=== PATIENT | male | born 1975 ===

== ENCOUNTER 2025-07-28 06:25 | Day surgery (SDC) | payer OTHER, SELFPAY | END 2025-07-28 09:15 | disposition home or self-care (01) | LOC: GI 06:25 | PROVIDERS: ATTENDING PHYSICIAN Surgery | DX: Z12.11 Encounter for screening for malignant neoplasm of colon (principal); K62.5 Hemorrhage of anus and rectum; K64.8 Other hemorrhoids; D12.0 Benign neoplasm of cecum | CPT/HCPCS: 45380; 88305 ==

== ENCOUNTER 2025-08-15 08:58 | Emergency (ER) | payer OTHER, SELFPAY ==
[2025-08-15 09:12] VITALS: BP 149/77
[2025-08-15 12:30] VITALS: BP 122/72
[2025-08-15] MEDS: ANTIVERT 25 MG PO (13:01)
--- NOTE | 2025-08-15 13:39 | ED.GENMED ---
History of Present Illness
General
Chief Complaint: Dizziness
Time Seen by Provider: 08/15/25 11:23
History of Present Illness
History of Present Illness:
50-year-old male without significant past medical history presenting for dizziness. Patient reports dizziness for the past 2 to 3 days. Reports that the dizziness is very positional, worse with certain head movements. He feels better when he
sitting down. Last night he slept sitting up. Reports a few weeks ago he did have some cough congestion, is unsure if this triggered his symptoms. Does report that he has had dizziness in the past, described as spinning, however usually does not
last very long. The dizziness currently is described as spinning. Denies chest pain, difficulty breathing, weakness, numbness or tingling to his extremities, visual changes. Denies any fall or trauma. Denies additional acute medical complaints
Phy Exam
Physical Exam
Physical Exam:
General: Well-appearing, no clinical signs of dehydration, nontoxic and in no acute distress
HEENT: protecting airway, pupils equal and reactive, extraocular movements are intact
Neck: appears supple
CV: Normal heart rate, regular rhythm
Resp: No accessory muscle use, no increased work of breathing
Abd: no distension
Extremities: No deformities, no swelling
Neuro: alert, no focal neurologic deficit
: deferred
Rectal: deferred
Psych: Normal affect
Skin: Intact
Course
Orders/Labs/Results
Orders:
Orders
08/15/25 12:39
Meclizine [Antivert] 25 mg PO NOW STA
08/15/25 13:14
Physical Therapy Consult [Pt Eval And Treat] Urgent
Treatment: vertigo
Activity Level: Out of Bed-Early Mobility
Vital Signs
Initial and Last Documented VS:
Initial Vital Signs
Temp Pulse Resp BP Pulse Ox
98.7 F 49 16 149/77 100
08/15/25 09:12 08/15/25 09:12 08/15/25 09:12 08/15/25 09:12 08/15/25 09:12
Last Documented Vital Signs
Temp Pulse Resp BP Pulse Ox
98.7 F 42 16 122/72 100
08/15/25 09:12 08/15/25 12:30 08/15/25 12:30 08/15/25 12:30 08/15/25 13:42
MDM/Problems Addressed
MDM/Problems Addressed:
50-year-old male presenting to the emergency department for dizziness for the past 3 days. Vital signs on arrival are normal.
On exam patient is resting comfortably, no acute distress. Symptoms appear most consistent with BPPV. Patient symptoms are reproduced by certain movements, some mild nystagmus. No focal neurologic deficits, without present concern for central
neurologic process. Will administer meclizine and consult with physical therapy
14:00 -physical therapy reports the patient is not positive when looking toward the right. Prashanth maneuver performed. At this time feel stable for discharge. Will provide vestibular therapy information.
*Pulse Oximetry
SaO2: 100
Oxygen Mode of Delivery: Room air
Patient hypoxic: no
*Critical Care Note
Total Time (30-74mins, 75-104mins- exclusive of procedures): Not Applicable
ED Attending Note
-
Portions of this chart may have been created with voice recognition software.� Occasional wrong word or��sound alike� substitutions may have occurred due to the inherent limitations of voice recognition software.
Discharge Plan
Departure
Referrals:
Christina Urias PA-C [Family Provider, Family Practice]
Interventions
Interventions:
*General Assessment Last Done: 08/15/25 12:26
*Neglect/Abuse Screening Last Done: 08/15/25 09:12
*ED COVID-19 Vaccine History Last Done: 08/15/25 12:26
*ED Influenza Vaccine History Last Done: 08/15/25 12:26
[facility] Risk Assessment Tool Last Done: 08/15/25 12:30
*Risk Screen - Suicide (C-SSRS) Last Done: 08/15/25 09:12
ED- Neurological Assessment Last Done: 08/15/25 12:28
Discharge Date and Time
Print Language: BELARUSIAN
[2025-08-15 13:50] VITALS: BP 137/84; PULSE 45; O2SAT 99
[2025-08-15 14:25] VITALS: BP 124/72
== END 2025-08-15 14:25 | disposition home or self-care (01) ==
LOC: EMR 08:58
PROVIDERS: EMERGENCY PHYSICIAN Student in an Organized Health Care Education/Training Program; FAMILY PHYSICIAN Physician Assistant Medical
DX: H81.10 Benign paroxysmal vertigo, unspecified ear (principal)
CPT/HCPCS: 99283; 97112

== ENCOUNTER 2025-08-23 07:42 | Outpatient (RCR) | payer OTHER, SELFPAY | END 2025-08-23 23:59 | disposition home or self-care (01) | LOC: RPT 07:42 | PROVIDERS: ATTENDING PHYSICIAN Physician Assistant Medical | DX: H81.10 Benign paroxysmal vertigo, unspecified ear (principal); Z73.6 Limitation of activities due to disability | CPT/HCPCS: 97112; 97161 ==